=== PATIENT | male | born 1990 | race Caucasian/White ===

== ENCOUNTER 2024-08-30 13:30 | Emergency (ER) | payer SELFPAY ==
[2024-08-30] MEDS ORDERED: Sodium Chloride 0.9% 1,000 ML IV ONE (14:06)
== END 2024-08-30 15:23 | disposition left against medical advice (07) ==
LOC: MW.ED 13:30
DX: R55 Syncope and collapse (principal); I10 Essential (primary) hypertension; F17.210 Nicotine dependence, cigarettes, uncomplicated; Z79.899 Other long term (current) drug therapy
CPT/HCPCS: 99283; 99284